=== PATIENT | male | born 2005 | race Caucasian/White ===

== ENCOUNTER 2023-09-08 09:58 | Emergency (ER) | payer OTHER, SELFPAY ==
[2023-09-08 10:00] VITALS: BP 173/91; PULSE 87; RESP 18; TEMP 37.1; O2SAT 100; BMI 37.9
--- NOTE | 2023-09-08 10:13 | CRLHL7_ITS ---
For Patients: As a result of the Cures Act, medical imaging exams and procedure reports are released immediately into your electronic medical record. You may view this report before your referring provider. If you have questions, please contact your health care provider. Indication: Fall with pain Technique: A total of three views of the left index finger were acquired. Comparison: None Findings: Bones: Irregularity at the volar plate of the middle phalanx of the left index finger. This probably represents a volar plate fracture though the age is uncertain. Correlate with point tenderness in this area. No other findings suggesting fracture. Joint spaces: No dislocation Soft tissues: No gas within soft tissues. No radiopaque foreign body. Impression: Irregularity at the volar plate of the middle phalanx of the left index finger. This likely represents a volar plate fracture though the age is indeterminate. Correlate with point tenderness in this area. Dictated by Taye Romero MD @ 09/08/2023 10:31:05 AM (Electronically Signed)
--- NOTE | 2023-09-08 10:21 | ED_ITS ---
HPI - General Adult General Chief complaint: Extremity Pain/Injury, Upper Stated complaint: L index finger injury Time Seen by Provider: 09/08/23 09:59 Source: patient Mode of arrival: ambulatory Limitations: no limitations History of Present Illness HPI narrative: 17-year-old male presenting today with finger pain. States that he fell 4 tried to catch himself and he feels like his pointer finger on the left bent to certain way. Now he is complaining pain at the PIP. Denies any other injury. Related Data Home Medications Medication Instructions Recorded Confirmed No Known Home Medications 09/08/23 09/08/23 Allergies Allergy/AdvReac Type Severity Reaction Status Date / Time No Known Drug Allergies Allergy Verified 09/08/23 10:04 Review of Systems Status of ROS: Reports: 6 or more systems reviewed and unremarkable except as noted in History and below Exam Narrative: Exam Narrative: Tall, overweight well-developed patient in no acute distress. Alert and oriented. Answers questions appropriately. Mood and affect are appropriate. Thoughts are goal oriented and rational. No tangential or magical thinking not ed. Patient speaks in full sentences without needing to catch his breath. HEENT: Normocephalic atraumatic. Pupils are equally round reactive to light. Extraocular muscles are intact. Conjunctivae are moist without any icterus noted. Moist mucous membranes. Extremities: Mild swelling over the PIP and the proximal phalanx of the 2nd digit of the left hand. Remainder of the hands entirely normal. He has pain with flexion of that finger. No problems with full extension. No tenderness over the distal finger or D IP. Const: Vital Signs, click to edit/add: Vital Signs - 24 hr 09/08/23 10:00 Temperature 98.8 F Pulse Rate [Pulse Oximeter] 87 Respiratory Rate 18 Blood Pressure [Ri ght Upper Arm] 173/91 H Pulse Oximetry 100 Oxygen Delivery Me thod Room Air Course Course ED Course: X-ray of the finger was done and shows a volar plate fracture. This is consistent with his point of tenderness. Vital Signs Vital signs: Initial Vital Signs Temperature 98.8 F 09/08/23 10:00 Temperature Source Temporal Artery Scan 09/08/23 10:00 Pulse Rate 87 09/08/23 10:00 Respiratory Rate 18 09/08/23 10:00 Blood Pressure 173/91 H 09/08/23 10:00 Blood Pressure Mean 118 H 09/08/23 10:00 Blood Pressure Position Sitting 09/08/23 10:00 Pulse Oximetry 100 09/08/23 10:00 Oxygen Delivery Method Room Air 09/08/23 10:00 Vital Signs Temperature 98.8 F 09/08/23 10:00 Pulse Rate 87 09/08/23 10:00 Respiratory Rate 18 09/08/23 10:00 Blood Pressure 173/91 H 09/08/23 10:00 Pulse Oximetry 100 09/08/23 10:00 Oxygen Delivery Method Room Air 09/08/23 10:00 Temperature 98.8 F 09/08/23 10:00 Pulse Rate 87 09/08/23 10:00 Respiratory Rate 18 09/08/23 10:00 Blood Pressure 173/91 H 09/08/23 10:00 Pulse Oximetry 100 09/08/23 10:00 Oxygen Delivery Method Room Air 09/08/23 10:00 Medical Decision Making MDM Narrative Medical decision making narrative: 17-year-old male with a volar plate fracture. A dorsal splint was placed with joaquín taping. We discussed following up with his primary care provider in 3 weeks time. Imaging Data X-ray finger: Attestation: I have reviewed the pertinent imaging results. Radiologist's impression: A total of three views of the left index finger were acquired. Comparison: None Findings: Bones: Irregularity at the volar plate of the middle phalanx of the left index finger. This probably represents a volar plate fracture though the age is uncertain. Correlate with point tenderness in this area. No other findings suggesting fracture. Joint spaces: No dislocation Soft tissues: No gas within soft tissues. No radiopaque foreign body. Impression: Irregularity at the volar plate of the middle phalanx of the left index finger. This likely represents a volar plate fracture though the age is indeterminate. Correlate with point tenderness in this area. Discharge Plan Discharge Clinical Impression: Finger fracture Patient Disposition: Home, Self-Care Condition: Stable Additional Instructions: Okay to remove [place] as needed to wash her hand or shower. Otherwise you should wear it at all times for the next 3-4 weeks. Can start taking it off at that time to do gentle [id number] exercises. You should follow-up with your primary care provider in 3 weeks time to make sure everything is healing properly. Prescriptions: No Action No Known Home Medications Follow Up/Referrals: Provider,Not a Local [Primary Care Provider] - Stand Alone Forms: [facility] Info Instructions
[2023-09-08 11:00] VITALS: BP 173/91; PULSE 87; RESP 18; TEMP 37.1
== END 2023-09-08 11:00 | disposition home or self-care (01) ==
PROVIDERS: Emergency Provider Family Medicine
DX: S62.651A Nondisplaced fracture of middle phalanx of left index finger, initial encounter for closed fracture (principal); W19.XXXA Unspecified fall, initial encounter
CPT/HCPCS: 29130; 73140; 99283; 99284

== ENCOUNTER 2023-11-23 07:02 | Emergency (ER) | payer OTHER, SELFPAY ==
[2023-11-23 07:16] VITALS: BP 179/93; PULSE 75; RESP 18; TEMP 36.8; O2SAT 97; BMI 36.6
--- NOTE | 2023-11-23 07:47 | ED.GENADULT ---
HPI - General Adult General Chief complaint: Laceration/Wound Stated complaint: Lac left pointer finger Time Seen by Provider: 11/23/23 07:25 Source: patient and family Limitations: no limitations History of Present Illness HPI narrative: 18-year-old male presents the emergency department for evaluation of a laceration this morning on the left lateral index finger along the PIP joint area. This happened when working with a loose wire. Last tetanus shot 2015. No sensory deficits, lesion does bleed, especially with movement. Did have a finger fracture earlier this year to the same finger but no surgery. He has otherwise been feeling well, no recent illness or fever. He does not take any anticoagulants. He has a past medical history of hypertension, reports that it takes a medication for this. No allergies. No movement deficits to the hand, no other areas of injury. Achy pain, constant, has not taken any medication to help with pain. ROS notable for no other musculoskeletal, neurological, skin or generalized complaints today. Related Data Home Medications Medication Instructions Recorded Confirmed olmesartan 40 mg tablet 40 mg PO DAILY 11/23/23 11/23/23 Allergies Allergy/AdvReac Type Severity Reaction Status Date / Time No Known Drug Allergies Allergy Verified 09/08/23 10:04 [facility] Social History Smoking Status: Never smoker Do you use any of these nicotine containing products: None Second hand tobacco smoke exposure: No How often do you have a drink containing alcohol: 2-4 times a month How many standard drinks containing alcohol do you have on a typical day: 3 or 4 AUDIT-C Alcohol total score: 3 Non-prescribed substance use: denies use Exam Const: Vital Signs, click to edit/add: Vital Signs - 24 hr 11/23/23 07:16 Temperature 98.2 F Pulse Rate [Right Pulse Oximeter] 75 Respiratory Rate 18 Blood Pressure [Ri ght Upper Arm] 179/93 H Pulse Oximetry 97 Oxygen Delivery Me thod Room Air Documenting provider has reviewed patient's vital signs: yes Common normals: no apparent distress and alert General appearance: cooperative Other: Friendly, good historian. No intoxication or impairment. HENMT: Common normals: normocephalic Head and scalp: normocephalic Face and sinus: normal facial exam Eye: Common normals: conjunctivae normal General eye: normal appearance of both eyes Conjunctiva: conjunctiva(e) normal Resp: Common normals: normal respiratory effort Effort & inspection: able to speak in complete sentences Extremity: Other: Normal radial pulses, normal capillary refill in all fingers. Left hand with towel wrapped around laceration on left 2nd finger. Normal range of motion of all fingers, wrist and hand. I remove the towel and CEA 1.5 cm laceration, diagonal, dermal depth oozing slightly along the lateral edge of the PIP joint. With counter traction, reapproximates wound edges very easily. No pulsatile bleeding. Remainder of finger normal. Normal abduction and adduction of the finger and hand, normal flexion and extension of the finger with no signs of neurological or tendon deficit. Neuro: Sensorium/orientation: alert Motor exam: no movement abnormalities noted Psych: Activity/motor behavior: appropriate eye contact Mood and affect: euthymic mood Insight: insight good Judgement: judgment good Skin: Narrative: Other than laceration on the left 2nd finger, no other areas of trauma or injury appreciated. Course Course ED Course: Wound examined, no foreign body seen. Cleanse with soapy tap water. Wound reapproximated easily. He would be a good candidate for Steri-Strips as this should close fairly quickly. Laceration repair:, Steri-Strips. Wound was cleansed with soapy tap water, no foreign body seen. Counter traction was used and Mastisol as primary. Steri-Strips were applied with excellent wound approximation and hemostasis. It is of Steri-Strips were sealed with Dermabond for extra protection. Counseled on wound care. Will be covered with finger splint by nurse once dry. Alarm symptoms reviewed, care discussed. Tetanus still up-to-date. Follow-up if any signs of infection or complications. Okay to use Tylenol and/or ibuprofen as needed for pain at home. Vital Signs Vital signs: Initial Vital Signs Temperature 98.2 F 11/23/23 07:16 Temperature Source Temporal Artery Scan 11/23/23 07:16 Pulse Rate 75 11/23/23 07:16 Respiratory Rate 18 11/23/23 07:16 Blood Pressure 179/93 H 11/23/23 07:16 Blood Pressure Mean 121 H 11/23/23 07:16 Blood Pressure Position Sitting 11/23/23 07:16 Pulse Oximetry 97 11/23/23 07:16 Oxygen Delivery Method Room Air 11/23/23 07:16 Vital Signs Temperature 98.2 F 11/23/23 07:16 Pulse Rate 75 11/23/23 07:16 Respiratory Rate 18 11/23/23 07:16 Blood Pressure 179/93 H 11/23/23 07:16 Pulse Oximetry 97 11/23/23 07:16 Oxygen Delivery Method Room Air 11/23/23 07:16 Temperature 98.2 F 11/23/23 07:16 Pulse Rate 75 11/23/23 07:16 Respiratory Rate 18 11/23/23 07:16 Blood Pressure 179/93 H 11/23/23 07:16 Pulse Oximetry 97 11/23/23 07:16 Oxygen Delivery Method Room Air 11/23/23 07:16 Discharge Plan Discharge Clinical Impression: Laceration Patient Disposition: Home w/ Parent or Adult Condition: Stable Instructions: Steristrips (ED) Additional Instructions: Your last tetanus shot was at age 10, therefore you do have another 2 years before you need an update. This is the typical age. Thankfully, your finger laceration did not hit the arteries, tendons or nerves that run on the side of the finger. They do tend to bleed a lot but should heal without complication. I applied a layer of Steri-Strips and glue under tension over the wound. This brought the skin edges together nicely and stop the bleeding. The good news is that this is easier for you to take care of. After an hour, they are fully dry and can get wet. The more water and friction against them, the less well they will stick. I would recommend that you wear the finger splint for today and at work tomorrow. After that, just as needed. The Steri-Strips will fall off on their own somewhere in the next 5-10 days. Try to avoid aggressive scrubbing of the hands for the next 24 hours. It is okay to wear latex gloves over the finger to protect the Steri-Strips. This is unlikely to get infected. Some mild tenderness and swelling are expected. Use Tylenol 1000 mg every 6 hours and/or ibuprofen 600 mg every 6 hours as needed for pain. It does tend to hurt more at night. If you notice increased drainage, severe swelling, streaking up the hand, and or fever I would recommend repeat evaluation within 24 hours. There are no stitches that need to be taken out. If the Steri-Strips are still in place after 1 week, you may gently peel them back and trim away the loose edges with small scissors. Activity Level: Activity as Tolerated Discharge Diet: Regular Prescriptions: No Action olmesartan 40 mg tablet 40 mg PO DAILY Follow Up/Referrals: Provider,Not a Local [Primary Care Provider] - Stand Alone Forms: [facility] Info Instructions
--- OUTSIDE RECORDS SUMMARY | 2023-11-23 08:01 | XMS_ITS | Clinical Summary ---
Author Name Unknown Organization [facility] Address [place], [place] [address] Care Team Providers Care It Program Manager Name Role Phone None Primary Care Provider Unavailabl e Allergies No known active allergies Medications Medication Sig Dispensed Refills Start Date End Date Status multivitamin (MVI) tablet Take 1 tablet by mouth once daily. 0 05/24/2015 Active Blood Pressure MonitorIndications:H ypertension Please dispense one kit, covered by insurance 1 Device 0 08/22/2016 Active olmesartan (BENICAR) 20 mg tabletIndications:Hy pertension Take 1 Tablet (20 mg) by mouth once daily. 30 Tablet 1 09/30/2023 Active olmesartan (BENICAR) 40 mg tabletIndications:Hy pertension Take 1 Tablet (40 mg) by mouth once daily. 90 Tablet 0 10/14/2023 Active Active Problems Problem Noted Date Diagnosed Date Viral warts 07/16/2016 Hypertension 06/23/2016 Resolved Problems Problem Noted Date Diagnosed Date Resolved Date Simple or unspecified chroni c serous otitis media 01/25/2007 01/26/2007 Encounters Date Type Department Care Team Description 10/14/2023 7:00 AM RESOURCE MANAGEMENT SPECIALIST Office Visit [facility] [address] [place] [address] Judie Blackmon PA Blood Pressure (Meds are doing okay ) 10/14/2023 Travel 09/30/2023 8:40 AM RESOURCE MANAGEMENT SPECIALIST Office Visit [facility] [address] [place] [address] Judie Blackmon PA Follow Up (Broken finger 09/08 left hand pointer finger) 09/30/2023 Travel 09/08/2023 Orders Only [facility] Scanner 1 scan: (1-Ord) [facility], XR 2ND FINGER LT, 09/08/2023 from Last 3 Months Immunizations Name Administration Dates Next Due AMB Influenza, (Flumist) Felicia e Intranasal,LAIV4 (Flu Clinic Only) 07/13/2012 AMB Influenza, IIV3 (Age >=3 years)(Flu Clinic Only) 09/09/2011,09/02/2010 AMB Influenza, IIV4 PF (=>6 mos Flulaval,Fluzone Fluarix)(Flu Clinic Only) 07/27/2017,07/29/2016,08/07/2014 DTaP 01/25/2007,11/27/2004 [id number] (Pediarix) 05/20/2004,03/07/2004,0 02/08/2004 DTaP-IPV (Kinrix) 03/12/2009 HIB PRP-OMP (PedvaxHIB) 01/25/2007,11/27,03/07/2004,02/07 HPV 9 (Gardasil 9) 01/14/2018,06/09/2016 Hepatitis A (Peds) 01/14/2018,06/09/2016 Hepatitis B (Peds) 2003 Inactivated Polio Vaccine 2003 Influenza A (H1N1), Inactivated 09/13/2009 Influenza, IIV3 (Age 6-35 mos) 09/09/2011 Influenza, IIV3 (Age >=3 years) 10/15/2010,08/23,08/16/2004 Influenza, IIV4 07/13/2019,08/31/2018,08/10/2015 Influenza, Live, Intranasal Laiv3 09/07/2013, Influenza,LAIV4 Live Intrana feliberto (Flumist) 08/29/2013 MMR 03/12/2009,11/27/2004 Meningococcal Vaccine (Menveo) 01/17/2021,2015 Pneumococcal conj 7-Valent (Prevnar 7) 0 11/27/2004,05/20/2004,03/07/2004,02/06 Tdap 06/09/2016 Varicella Vaccine 03/12/2009,11/27/2004 Family History Medical History Relation Name Comments Mental illness Mother depression, a nxiety Cancer Paternal Grandmother cervica l Relation Name Status Comments Mother Paternal Grandmother Social History Tobacco Use Types Packs/Day Years Used Date Smoking Tobacco: Never Smokeless Tobacco: Never Tobacco Cessation:Counseling Given: Yes Alcohol Use Standard Drinks/Week Comments No 0 (1 standard drink = 0.6 oz pur e alcohol) PHQ-2 Answer Date Recorded PHQ-2 TOTAL SCORE 0 01/17/2021 Social Connections Answer Date Recorded Frequency of Communication with Friends and Fami ly Not on file 09/30/2023 Financial Resource Strain Answer Date R ecorded Difficulty of Paying Living Expenses Not on file 10/21/2021 Difficulty of Paying Living Expenses Not on file 10/21/2021 Sex and Gender Information Value Date Recorded Sex Assigned at Not on file Gender Identity Not on file Sexual Orientation Not on file Obstetrics History Last Filed Vital Signs Vital Sign Reading Time Taken Comments Blood Pressure 154/95 10/14/2023 7:07 AM RESOURCE MANAGEMENT SPECIALIST Pulse 77 10/14/2023 7:07 AM RESOURCE MANAGEMENT SPECIALIST Temperature 36.8 ??C (98.2 ??F) 02/16/2017 9:57 AM CD T Respiratory Rate 20 06/12/2014 3:26 PM CDT Oxygen Saturation 100% 10/14/2023 7:07 AM RESOURCE MANAGEMENT SPECIALIST Inhaled Oxygen Concentration - - Weight 128.4 kg (283 lb) 10/14/2023 7:07 AM RESOURCE MANAGEMENT SPECIALIST Height 181 cm (5' 11.26) 02/26/2021 8:14 AM CDT Body Mass Index - - Plan of Treatment Health Maintenance Due Date Last Done Comments COVID-19 vaccine series (#1) 05/19/2004 HIV for age 15-65 2018 BMI (ht and wt on same day) for age 18+ 2021 Hepatitis C screening for age 18-79 2021 Depression screening for age 12+ 01/17/2022 01/17/2021, 07/13/2019, 06/03/2018, Additional history exists Well Child Check for age 3-20 01/17/2022 01/17/2021, 07/13/2019, 06/03/2018, Additional history exists Influenza for age 9-49 06/26/2023 9, 08/31/2018, 07/27/2017, Additional history exists Tetanus booster 06/09/2026 06/09/2016 Pneumococcal series for age 6-64 Aged Out 11/27/2004, 05/20/2004, 03/07/2004, Additional history exists No longer eligible based on patient's age to complete this topic Tdap Completed 06/09/2016 HPV series for age 9-26 Completed 01/14/2018, 06/09 Meningococcal series for age 11-21 Completed 01/17/2021, 06/09/2016 Procedures Procedure Name Priority Date/Time Associated Diagnosis Comments BASIC METABOLIC PANEL Routine 10/14/2023 7:40 AM RESOURCE MANAGEMENT SPECIALIST Hypertension SCAN-RADIOLOGY REPORT 09/08/2023 12:00 AM RESOURCE MANAGEMENT SPECIALIST from Last 3 Months Results * (ABNORMAL) BASIC METABOLIC PANEL (10/14/2023 7:40 AM RESOURCE MANAGEMENT SPECIALIST) SODIUM 140 136 - 145 mmol/L 10/14/2023 3:19 PM [facility] POTASSIUM 4.4 3.5 - 5.1 mmol/L 10/14/2023 3:19 PM [facility] CHLORIDE 102 98 - 107 mmol/L 10/14/2023 3:19 PM [facility] CO2,TOTAL 25 22 - 29 mmol/L 10/14/2023 3:19 PM RESOURCE MANAGEMENT SPECIALIST [facility] ANION GAP 13 5 - 18 10/14/2023 3:19 PM RESOURCE MANAGEMENT SPECIALIST [facility] GLUCOSE 101(H) 70 - 99 mg/dL 10/14/2023 3:19 PM RESOURCE MANAGEMENT SPECIALIST [facility] CALCIUM 9.2 8.6 - 10.0 mg/dL 10/14/2023 3:19 PM RESOURCE MANAGEMENT SPECIALIST [facility] BUN 12 6 - 20 mg/dL 10/14/2023 3:19 PM [facility] CREATININE 1.03 0.70 - 1.20 mg/dL 10/14/2023 3:19 PM RESOURCE MANAGEMENT SPECIALIST [facility] BUN/CREAT RATIO 12 10 - 3 3:19 PM RESOURCE MANAGEMENT SPECIALIST [facility] eGFR >90 >90 mL/min/1.7 3m2 10/14/2023 3:19 PM RESOURCE MANAGEMENT SPECIALIST [facility] Comment:As of 2022, eG FR is calculated by the CKD-EPI creatinine equation without race adjustment. ??eGFR can be influenced by muscle mass, exercise, and diet. ??The reported eGFR is an estimation only and is only applicable if the renal function is stable. Blood BLOOD SPECIMEN / Unknown Venipuncture / Unknown 10/14/2023 7:40 AM RESOURCE MANAGEMENT SPECIALIST 10/14/2023 7:40 AM RESOURCE MANAGEMENT SPECIALIST Judie DILL CHEMISTRY [facility] [address] [place] [address], * SCAN-RADIOLOGY REPORT (09/08/2023 12:00 AM RESOURCE MANAGEMENT SPECIALIST) Anatomical Region Laterality Modality Other Scanner OTHER from Last 3 Months Care Teams It Program Manager Relationship Specialty Start Date End Date None . PCP - General 09/30/23
== END 2023-11-23 08:11 | disposition home or self-care (01) ==
LOC: ED 07:59
PROVIDERS: Emergency Provider Family Medicine; PCP Student in an Organized Health Care Education/Training Program
DX: S61.211A Laceration without foreign body of left index finger without damage to nail, initial encounter (principal); W26.9XXA Contact with unspecified sharp object(s), initial encounter
CPT/HCPCS: 12011; 99283